=== PATIENT | female | born 2000 | race Hispanic/Latino ===

== ENCOUNTER 2023-05-18 06:00 | Inpatient (IN) | payer SELFPAY ==
[2023-05-18 06:55] VITALS: BMI 34.9
[2023-05-18] MEDS ORDERED: HYDROcodone/Acetaminophen 5/325 mg Tablet PO PRN ×3 (08:08→13:52)
[2023-05-18] MEDS ORDERED: Ibuprofen 800 MG TAB PO PRN (08:08)
[2023-05-18] MEDS ORDERED: Acetaminophen 500 MG TAB PO PRN (08:08)
[2023-05-18] MEDS ORDERED: Lidocaine 1% (PF) 30 ML VIAL SC PRN (08:08)
[2023-05-18] MEDS ORDERED: Promethazine HCl 25 MG/ML VIAL IM PRN ×3 (08:08→13:52)
[2023-05-18] MEDS ORDERED: hydrALAZINE 20 MG/ML VIAL SLOW IVP PRN ×2 (08:08→13:52)
[2023-05-18] MEDS ORDERED: Carboprost 250 MCG/ML AMP IM PRN (08:08)
[2023-05-18] MEDS ORDERED: Misoprostol 200 MCG TAB PR PRN (08:08)
[2023-05-18] MEDS ORDERED: Ondansetron PF 4 MG/2 ML Vial IVP PRN ×3 (08:08→13:52)
[2023-05-18] MEDS ORDERED: fentaNYL 50 mcg/mL 1 mL Vial SLOW IVP PRN (08:08)
[2023-05-18] MEDS ORDERED: Diphenoxylate HCl/Atropine Tablet PO PRN (08:08)
[2023-05-18] MEDS ORDERED: Methylergonovine 0.2 MG/ML VIAL IM PRN (08:08)
[2023-05-18] MEDS ORDERED: Oxytocin 30 units/NS 500 ML 500 ML IV SCH ×2 (08:15)
[2023-05-18] MEDS ORDERED: Lactated Ringer's 1,000 ML IV SCH (08:15)
[2023-05-18 08:25] LABS: Hematocrit 36.3 % (34.9-44.5); Mean Corpuscular HGB CONC 33.1 g/dL (32.0-36.0); Mean Corpuscular Hemoglobin 26.7 pg (27.0-33.0); Mean Corpuscular Volume 80.7 fl (81.6-98.3); Mean Platelet Volume 11.5 fl (7.4-10.4); Platelet Count 275 10x3/uL (150-450); RBC Distribution Width 15.9 % (11.5-14.5)
[2023-05-18] MEDS ORDERED: fentaNYL/Ropivacaine Epidural 100 ML ONE (08:36)
[2023-05-18 08:55] LABS: Syphilis Antibody Nonreactive (Nonreactive)
[2023-05-18 08:56] LABS: HBSAg Index 0.14 S/CO (0-0.99); Hep B Surf Ag - L&D Non-Reactive S/CO (NonReactive)
[2023-05-18] MEDS ORDERED: Naloxone HCl 0.4 mg/ml Vial IVP PRN ×2 (12:40)
[2023-05-18] MEDS ORDERED: diphenhydrAMINE 50 MG/ML VIAL IVP PRN (12:40)
[2023-05-18] MEDS ORDERED: Acetaminophen 325 MG TAB PO PRN (12:40)
[2023-05-18] MEDS ORDERED: Moisturizing Cream (Eucerin) 113 GM JAR TOP PRN (12:40)
[2023-05-18] MEDS ORDERED: ePHEDrine Sulfate 50 MG/10 ML VIAL SLOW IVP PRN (12:40)
[2023-05-18] MEDS ORDERED: Lactated Ringer's 500 ML IV PRN (12:40)
[2023-05-18] MEDS ORDERED: fentaNYL 2 mcg/Ropivacaine 0.2% Epidural 100 ML CADD EPIDURAL SCH (12:45)
[2023-05-18] MEDS ORDERED: Communication Order-Pharmacy FS SCH (12:45)
[2023-05-18] MEDS ORDERED: Bupivacaine 0.25% HCL 30 ML VIAL ONE (13:00)
[2023-05-18] MEDS ORDERED: diphenhydrAMINE 25 MG CAP PO PRN (13:52)
[2023-05-18] MEDS ORDERED: Bisacodyl 10 MG SUPP PR PRN (13:52)
[2023-05-18] MEDS ORDERED: Lanolin Ointment 7 GM TUBE TOP PRN (13:52)
[2023-05-18] MEDS ORDERED: Preparation H Ointment 28 GM TUBE PR PRN (13:52)
[2023-05-18] MEDS ORDERED: Milk Of Magnesia 30 ML UDCUP PO PRN (13:52)
[2023-05-18] MEDS ORDERED: Benzocaine-Menthol 82.5 ML CAN TOP PRN (13:52)
[2023-05-18] MEDS ORDERED: Boostrix 0.5 ML (Tdap) VIAL (>/=7 yrs of age) IM ONE (13:52)
[2023-05-18] MEDS: Ibuprofen 800 MG TAB PO SCH ×2 (14:00→17:14)
[2023-05-18] MEDS: Ferrous Sulfate 325 MG TAB PO SCH (16:29)
[2023-05-18] MEDS: Docusate 100 MG CAP PO SCH (20:42)
[2023-05-19] MEDS: Ibuprofen 800 MG TAB PO SCH ×3 (05:37→21:31)
[2023-05-19] MEDS: Prenatal Vitamin 1 TAB PO SCH (09:41)
[2023-05-19] MEDS: Ferrous Sulfate 325 MG TAB PO SCH ×2 (09:41→16:15)
[2023-05-19] MEDS: Docusate 100 MG CAP PO SCH ×2 (09:41→21:31)
[2023-05-20] MEDS: Ibuprofen 800 MG TAB PO SCH (06:38)
[2023-05-20 08:38] VITALS: BP 120/79; TEMP 98.4
[2023-05-20] MEDS: Ferrous Sulfate 325 MG TAB PO SCH (08:39)
[2023-05-20] MEDS: Docusate 100 MG CAP PO SCH (08:58)
[2023-05-20] MEDS: Prenatal Vitamin 1 TAB PO SCH (08:58)
== END 2023-05-20 12:45 | disposition home or self-care (01) | DRG 807 ==
LOC: CSHLD 06:03 → CSHPP 15:03
PROVIDERS: ADMIT Student in an Organized Health Care Education/Training Program; ATTEND Student in an Organized Health Care Education/Training Program
PROC: 10E0XZZ Delivery of Products of Conception, External Approach (ICD-10-PCS; principal; 2023-05-18)
PROC: 3E033XZ Introduction of Vasopressor into Peripheral Vein, Percutaneous Approach (ICD-10-PCS; 2023-05-18)
DX: O48.0 Post-term pregnancy (principal); Z37.0 Single live birth; Z3A.40 40 weeks gestation of pregnancy
CPT/HCPCS: 51702; 85027; 86780; 86850; 86900; 86901; 87340; J2590; J7120; S0020